=== PATIENT | male | born 1965 | race Caucasian/White ===

== ENCOUNTER 2023-03-10 04:00 | Emergency (ER) | payer OTHER ==
[~2023-03-10] VITALS: Ht 170.2 cm; Wt 71.7 kg
--- NOTE | 2023-03-10 04:13 | NUR ---
BIBS C/O ON AND OFF LEFT FLANK PAIN X2DAYS
[2023-03-10] MEDS ORDERED: IV NS 0.9% 1,000 ML BAG IV ONE ×2 (04:30→05:00)
[2023-03-10] MEDS ORDERED: ONDANSETRON HCL/PF 4 MG/2 ML VIAL IVP ONE (04:30)
--- NOTE | 2023-03-10 04:33 | NUR ---
URINE COLLECTED SENT TO LAB
[2023-03-10] MEDS ORDERED: ONDANSETRON HCL/PF 4 MG/2 ML VIAL ONE (04:34)
--- NOTE | 2023-03-10 04:40 | NUR ---
18G L AC STARTED. BLOOD COLLECTED SENT TO LAB
--- NOTE | 2023-03-10 04:41 | NUR ---
PT TAKEN TO CT
[2023-03-10] MEDS ORDERED: KETOROLAC TROMETHAMINE INJ 30 MG/ML VIAL ONE (04:44)
[2023-03-10 04:47] LABS: BASOPHILS # (AUTO) 0.1 K/uL (0.0-0.2); BASOPHILS % (AUTO) 0.9 % (0.0-2.0); EOSINOPHILS % (AUTO) 2.1 % (0.0-6.0); HEMATOCRIT 47 % (39-51); HEMOGLOBIN 15.5 g/dL (13.5-17.5); LYMPHOCYTES # (AUTO) 2.5 K/uL (0.8-4.8); LYMPHOCYTES % (AUTO) 23.9 % (20.0-44.0); MEAN CORPUSCULAR HGB CONC 33 g/dl (31.0-36.0); MEAN CORPUSCULAR VOLUME 92 fL (80-96); MONOCYTES # (AUTO) 0.8 K/uL (0.1-1.30); MONOCYTES % (AUTO) 7.6 % (2.0-12.0); NEUTROPHILS % (AUTO) 65.5 % (43.0-81.0); PLATELET COUNT (AUTO) 183 K/uL (150-450); RED BLOOD CELL COUNT(AUTO) 5.13 MIL/uL (4.5-6.0); WHITE BLOOD COUNT (AUTO) 10.6 K/uL (4.3-11.0)
[2023-03-10 04:48] LABS: BILIRUBIN,URINE NEGATIVE (NEGATIVE); COLOR,URINE YELLOW (YELLOW); LEUKOCYTE ESTERASE ,URINE NEGATIVE (NEGATIVE); NITRITE, URINE NEGATIVE (NEGATIVE); PROTEIN,URINE NEGATIVE (NEGATIVE); UGLUCOSE NEGATIVE (NEGATIVE); UROBILINOGEN,URINE 0.2 EU/dL (0.2)
[2023-03-10 04:50] LABS: BACTERIA,URINE Rare /HPF (None Seen); SQUAMOUS EPITHELIAL CELL,UR Few /HPF (None Seen); WBC,URINE 0-2 /HPF (0-3)
[2023-03-10 04:51] LABS: CALCIUM, SERUM 9.6 mg/dL (8.5-10.1); CARBON DIOXIDE 29 mmol/L (21-32); CHLORIDE 104 mmol/L (98-107); CREATININE 1.2 mg/dL (0.6-1.3); GLUCOSE 125 mg/dL (74-106); POTASSIUM 3.9 mmol/L (3.5-5.1); SODIUM SERUM 141 mmol/L (136-145); UREA NITROGEN, BLOOD 17 mg/dL (7-18)
[2023-03-10 04:57] LABS: ALANINE AMINOTRANSFERASE 45 U/L (12-78); ALBUMIN 4.5 g/dL (3.4-5.0); ALKALINE PHOSPHATASE 72 U/L (46-116); ASPARTATE AMINOTRANSFERASE 20 U/L (15-37); BILIRUBIN,DIRECT 0.1 mg/dL (0.0-0.2); BILIRUBIN,TOTAL 0.6 mg/dL (0.2-1.0); TOTAL PROTEIN, SERUM 7.2 g/dL (6.4-8.2)
[2023-03-10] MEDS ORDERED: KETOROLAC TROMETHAMINE INJ 30 MG/ML VIAL IV ONE (05:00)
--- NOTE | 2023-03-10 05:15 | NUR ---
PT RETURNED FROM CT
--- NOTE | 2023-03-10 07:48 | NUR ---
PAGED RADIOLOGY RE:CT SCAN INTERPRETATION
[2023-03-10] MEDS ORDERED: TAMS-12 PO (08:32)
[2023-03-10] MEDS ORDERED: IBUP-1955 PO (08:32)
--- NOTE | 2023-03-10 08:39 | NUR ---
IV removed. Catheter intact and site benign. Pressure and 4x4 applied to site. No bleeding noted.Patient discharged to home in stable condition. Written and verbal after care instructions given. Patient verbalizes understanding of instruction.
[2023-03-10 08:41] VITALS: BP 135/85
== END 2023-03-10 08:39 | disposition home or self-care (01) ==
LOC: ER 04:10
DX: R10.9 Unspecified abdominal pain (principal)
CPT/HCPCS: 99285; 74176; 96374; 71045; 96361; 96375; 74021; 85025; 80048; 80076; 81001; 36415; 84484; J1885; J2405; J7030

== ENCOUNTER 2024-05-14 12:54 | Inpatient (IN) | payer OTHER ==
[~2024-05-14] VITALS: Ht 170.2 cm; Wt 63.5 kg
[~2024-05-14 12:54] MED LIST: IBUP-1955 PO; TAMS-12 PO
[2024-05-14] MEDS ORDERED: IOHEXOL-350 100 ML VIAL IV ONE (13:12)
[2024-05-14 13:16] LABS: BASOPHILS # (AUTO) 0.1 K/uL (0.0-0.2); BASOPHILS % (AUTO) 0.7 % (0.0-2.0); EOSINOPHILS # (AUTO) 0.2 K/uL (0.0-0.7); EOSINOPHILS % (AUTO) 2.1 % (0.0-6.0); HEMATOCRIT 48 % (39-51); HEMOGLOBIN 16.2 g/dL (13.5-17.5); LYMPHOCYTES # (AUTO) 2.9 K/uL (0.8-4.8); LYMPHOCYTES % (AUTO) 35.8 % (20.0-44.0); MEAN CORPUSCULAR HEMOGLOBIN 31 PG (26.0-33.0); MEAN CORPUSCULAR HGB CONC 34 g/dl (31.0-36.0); MEAN CORPUSCULAR VOLUME 91 fL (80-96); MONOCYTES # (AUTO) 0.6 K/uL (0.1-1.30); MONOCYTES % (AUTO) 7.6 % (2.0-12.0); NEUTROPHILS # (AUTO) 4.3 K/uL (1.8-8.9); NEUTROPHILS % (AUTO) 53.8 % (43.0-81.0); PLATELET COUNT (AUTO) 134 K/uL (150-450); RED BLOOD CELL COUNT(AUTO) 5.23 MIL/uL (4.5-6.0); RED CELL DISTRIBUTION WIDTH 13.1 % (11.5-15.0); WHITE BLOOD COUNT (AUTO) 8.1 K/uL (4.3-11.0)
[2024-05-14 13:29] LABS: CALCIUM, SERUM 8.9 mg/dL (8.5-10.1); CARBON DIOXIDE 30 mmol/L (21-32); CHLORIDE 109 mmol/L (98-107); CREATININE 0.9 mg/dL (0.6-1.3); GLUCOSE 80 mg/dL (74-106); POTASSIUM 4.1 mmol/L (3.5-5.1); SODIUM SERUM 145 mmol/L (136-145); UREA NITROGEN, BLOOD 13 mg/dL (7-18)
[2024-05-14 13:37] LABS: INR 1.03 (0.91-1.10); PARTIAL THROMBOPLASTIN TIME 23.9 SEC (24.3-34.3); PROTHROMBIN TIME 10.9 SECS (9.2-11.1)
[2024-05-14] MEDS ORDERED: OMEG-167 PO (14:37)
[2024-05-14] MEDS ORDERED: ATOR40TA PO (14:37)
[2024-05-14] MEDS ORDERED: NAPR220T66 PO (14:37)
[2024-05-14] MEDS ORDERED: METF-440 PO (14:37)
[2024-05-14] MEDS ORDERED: CLOPIDOGREL BISULFATE 75 MG TABLET ONE (16:44)
[2024-05-14] MEDS: ASPIRIN 81 MG TAB.CHEW PO ONE (16:49)
[2024-05-14] MEDS: CLOPIDOGREL BISULFATE 300 MG TABLET PO ONE (16:49)
[2024-05-14 17:00] VITALS: BP 159/88; TEMP 97.7; O2SAT 98
[2024-05-14] MEDS ORDERED: ONDANSETRON HCL/PF 4 MG/2 ML VIAL IVP PRN (17:00)
[2024-05-14] MEDS ORDERED: Z GUARD REMEDY 4 OZ OINT TP PRN (17:00)
[2024-05-14] MEDS ORDERED: DEXTROSE 50%-WATER 50 ML DISP.SYRIN IV PRN (17:00)
[2024-05-14] MEDS ORDERED: MAGNESIUM HYDROXIDE 30 ML UDC PO PRN (17:00)
[2024-05-14] MEDS ORDERED: ACETAMINOPHEN 325 MG TABLET PO PRN (17:00)
[2024-05-14] MEDS: BLOOD SUGAR DIAGNOSTIC 1 EACH STRIP IN SCH (17:50)
[2024-05-14] MEDS: INSULIN REGULAR, HUMAN 100 UNIT/ML 3 ML VIAL SQ PRN (17:51)
[2024-05-14 20:00] VITALS: BP 176/96; TEMP 97.5; O2SAT 96
[2024-05-14] MEDS: ENOXAPARIN SODIUM 40 MG/0.4 ML DISP.SYRIN SQ SCH (21:25)
[2024-05-14] MEDS: CLONIDINE HCL 0.1 MG TABLET PO PRN (21:26)
[2024-05-14] MEDS: ATORVASTATIN 40 MG TABLET PO SCH (21:27)
[2024-05-15] VITALS: BP 125/80; TEMP 98.6; O2SAT 97
[2024-05-15 04:00] VITALS: BP 117/65; TEMP 98.1; O2SAT 96
[2024-05-15 06:28] LABS: BASOPHILS % (AUTO) 0.7 % (0.0-2.0); EOSINOPHILS # (AUTO) 0.2 K/uL (0.0-0.7); EOSINOPHILS % (AUTO) 2.9 % (0.0-6.0); HEMATOCRIT 44 % (39-51); HEMOGLOBIN 14.9 g/dL (13.5-17.5); LYMPHOCYTES # (AUTO) 2.6 K/uL (0.8-4.8); LYMPHOCYTES % (AUTO) 42.1 % (20.0-44.0); MEAN CORPUSCULAR HEMOGLOBIN 31 PG (26.0-33.0); MEAN CORPUSCULAR HGB CONC 34 g/dl (31.0-36.0); MEAN CORPUSCULAR VOLUME 92 fL (80-96); MONOCYTES # (AUTO) 0.4 K/uL (0.1-1.30); MONOCYTES % (AUTO) 6.9 % (2.0-12.0); NEUTROPHILS % (AUTO) 47.4 % (43.0-81.0); PLATELET COUNT (AUTO) 115 K/uL (150-450); RED BLOOD CELL COUNT(AUTO) 4.76 MIL/uL (4.5-6.0); RED CELL DISTRIBUTION WIDTH 12.9 % (11.5-15.0); WHITE BLOOD COUNT (AUTO) 6.3 K/uL (4.3-11.0)
[2024-05-15 07:06] LABS: ALBUMIN 3.3 g/dL (3.4-5.0); CALCIUM, SERUM 8.4 mg/dL (8.5-10.1); CREATININE 0.9 mg/dL (0.6-1.3); MAGNESIUM 1.7 mg/dL (1.8-2.4); PHOSPHORUS 4.6 mg/dL (2.5-4.9); POTASSIUM 3.5 mmol/L (3.5-5.1); TOTAL PROTEIN, SERUM 6.1 g/dL (6.4-8.2)
[2024-05-15 07:07] LABS: THYROID STIMULATING HORMONE 1.33 uIU/mL (0.358-3.74)
[2024-05-15 08:00] VITALS: BP 121/72; TEMP 97.7; O2SAT 94
[2024-05-15] MEDS: PANTOPRAZOLE 40 MG TABLET.DR PO SCH (08:07)
[2024-05-15] MEDS: CLOPIDOGREL BISULFATE 75 MG TABLET PO SCH (08:07)
[2024-05-15] MEDS: ASPIRIN EC 81 MG TABLET.DR PO SCH (08:07)
[2024-05-15] MEDS: MAGNESIUM OXIDE 400 MG TABLET PO ONE (11:39)
[2024-05-15 12:00] VITALS: BP 149/87; TEMP 97.9; O2SAT 94
[2024-05-15] MEDS ORDERED: ATOR80TA PO (13:30)
[2024-05-15] MEDS ORDERED: ASPI-1420 PO (13:30)
[2024-05-15] MEDS ORDERED: CLOP75TA15 PO (13:30)
[2024-05-15 16:00] VITALS: BP 118/74; TEMP 97.9; O2SAT 93
== END 2024-05-15 18:25 | disposition home or self-care (01) | DRG 45 ==
LOC: ER 12:54 → TELE1 16:40
PROVIDERS: ADMIT Nurse Practitioner Family; ATTEND Nurse Practitioner Family
DX: I63.9 Cerebral infarction, unspecified (principal); D69.6 Thrombocytopenia, unspecified; E11.9 Type 2 diabetes mellitus without complications; E78.5 Hyperlipidemia, unspecified; Z79.84 Long term (current) use of oral hypoglycemic drugs; R29.702 NIHSS score 2; R29.810 Facial weakness; Z87.442 Personal history of urinary calculi; I67.9 Cerebrovascular disease, unspecified; G81.91 Hemiplegia, unspecified affecting right dominant side; I69.322 Dysarthria following cerebral infarction
CPT/HCPCS: 36415; 70450-TC; 70496-TC; 70498-TC; 80048-TC; 80053-TC; 80061-TC; 82962-TC; 83735-TC; 84100-TC; 84443-TC; 84484-TC; 85025-TC; 85730-TC; 92526; 92611-TC; 93307-TC; 97110-TC; 97112-TC; 97116-TC; 97530-TC; 97535-TC; G0378; J1650; J1815; Q9967